=== PATIENT | female | born 1950 | race Caucasian/White ===

== ENCOUNTER 2024-09-06 05:36 | Emergency (ER) | payer MEDICARE, MEDICAID ==
[~2024-09-06] VITALS: Ht 163.8 cm; Wt 88.0 kg
[~2024-09-06 05:36] MED LIST: APIX5TAB3 PO; ASHW300C2; ATOR20TA66 PO; CHOL1CAP16; DAPA10TA PO; IODI30TI; MAGN400C PO; METO-395 PO; SACU1TAB PO; SOYB50CA; SPIR25TA PO
[2024-09-06] MEDS ORDERED: furosemide 10 MG/1 ML 10ml inj IV ONE (06:25)
[2024-09-06] MEDS: furosemide 40mg/4ml inj IV ONE (07:22)
[2024-09-06] MEDS: metoprolol tartrate 1mg/ml inj IV ONE (07:23)
[2024-09-06 08:15] LABS: BASOPHILS # (AUTO) 0.1 X10'3 (0-0.2); BASOPHILS % (AUTO) 0.8 % (0-1); EOSINOPHILS # (AUTO) 0.1 X10'3 (0-0.9); EOSINOPHILS % (AUTO) 1.2 % (0-6); HEMATOCRIT 44.6 % (35.0-45.0); HEMOGLOBIN 14.6 g/dl (12.0-16.0); LYMPHOCYTES # (AUTO) 1.3 X10'3 (1.1-4.8); LYMPHOCYTES % (AUTO) 16.7 % (21-51); MEAN CORPUSCULAR HEMOGLOBIN 29.8 PG (27.0-31.0); MEAN CORPUSCULAR HGB CONC 32.7 g/dL (33.0-36.5); MEAN CORPUSCULAR VOLUME 91.1 FL (78-98); MEAN PLATELET VOLUME 9.2 FL (7.4-10.4); MONOCYTES # (AUTO) 0.5 X10'3 (0-0.9); NEUTROPHILS # (AUTO) 5.9 X10'3 (1.8-7.7); NEUTROPHILS % (AUTO) 75.3 % (42-75); PLATELET COUNT 286 X10'3 (140-440); RED BLOOD COUNT 4.89 X10'6 (4.20-5.60); RED CELL DISTRIBUTION WIDTH 15.7 % (11.5-14.5); WHITE BLOOD COUNT 7.8 X10'3 (4.5-11.0)
[2024-09-06 08:29] LABS: ALANINE AMINOTRANSFERASE 169 U/L (12-78); ALBUMIN 3.5 G/DL (3.4-5.0); ALKALINE PHOSPHATASE 98 IU/L (46-116); ANION GAP 10 (8-16); ASPARTATE AMINO TRANSFERASE 108 U/L (10-37); BILIRUBIN,TOTAL 0.6 MG/DL (0.1-1.0); BLOOD UREA NITROGEN 29 MG/DL (7-18); BUN/CREATININE RATIO 25.9 (10.0-20.0); CALCIUM 9.7 MG/DL (8.5-10.1); CHLORIDE 101 MMOL/L (99-107); CREATININE 1.12 MG/DL (0.40-0.90); GLUCOSE 136 MG/DL (70-104); POTASSIUM 4.4 MMOL/L (3.5-5.1); SODIUM 135 MMOL/L (135-145); TOTAL CARBON DIOXIDE 24.2 MMOL/L (24-32); TOTAL PROTEIN 7.1 G/DL (6.4-8.2); eCRCL 38 ML/MIN; eGFR 47 ML/MIN
[2024-09-06 08:37] LABS: PRO BRAIN NATRIURETIC PEPTIDE 8350 PG/ML (0-450)
[2024-09-06 09:25] VITALS: BP 126/90; PULSE 89; RESP 16; TEMP 97.5; O2SAT 99
== END 2024-09-06 09:28 | disposition home or self-care (01) ==
LOC: ER 05:37
DX: I48.91 Unspecified atrial fibrillation (principal); I50.23 Acute on chronic systolic (congestive) heart failure; Z88.5 Allergy status to narcotic agent; Z79.899 Other long term (current) drug therapy; Z60.2 Problems related to living alone
CPT/HCPCS: 36415; 71045; 80053; 83880; 84484; 85025; 93005; 96374; 96375; 99285; J1940; J3490

== ENCOUNTER 2024-09-14 15:31 | Emergency (ER) | payer MEDICARE, MEDICAID ==
[~2024-09-14] VITALS: Ht 162.6 cm; Wt 88.0 kg
[~2024-09-14 15:31] MED LIST changes: -IODI30TI; -SOYB50CA
[2024-09-14 16:49] VITALS: BP 131/99; PULSE 99; RESP 16; TEMP 98.6; O2SAT 98
== END 2024-09-14 18:07 | disposition home or self-care (01) ==
LOC: ER 15:32
DX: S09.90XA Unspecified injury of head, initial encounter (principal); I48.91 Unspecified atrial fibrillation; I50.9 Heart failure, unspecified; Z88.5 Allergy status to narcotic agent; W19.XXXA Unspecified fall, initial encounter; Y93.01 Activity, walking, marching and hiking; Y92.89 Other specified places as the place of occurrence of the external cause; Y99.8 Other external cause status
CPT/HCPCS: 70450; 72125; 99284

== ENCOUNTER 2024-09-24 11:11 | Inpatient (IN) | payer MEDICARE, MEDICAID ==
[~2024-09-24] VITALS: Ht 162.6 cm; Wt 81.8 kg
[2024-09-24 12:25] LABS: BASOPHILS % (AUTO) 0.7 % (0-1); EOSINOPHILS # (AUTO) 0.1 X10'3 (0-0.9); HEMATOCRIT 46.9 % (35.0-45.0); HEMOGLOBIN 14.7 g/dl (12.0-16.0); LYMPHOCYTES # (AUTO) 1.3 X10'3 (1.1-4.8); LYMPHOCYTES % (AUTO) 20.1 % (21-51); MEAN CORPUSCULAR HEMOGLOBIN 29.8 PG (27.0-31.0); MEAN CORPUSCULAR HGB CONC 31.4 g/dL (33.0-36.5); MEAN CORPUSCULAR VOLUME 94.8 FL (78-98); MEAN PLATELET VOLUME 9.6 FL (7.4-10.4); MONOCYTES # (AUTO) 0.4 X10'3 (0-0.9); MONOCYTES % (AUTO) 5.7 % (2-12); NEUTROPHILS # (AUTO) 4.7 X10'3 (1.8-7.7); NEUTROPHILS % (AUTO) 72.5 % (42-75); PLATELET COUNT 233 X10'3 (140-440); RED BLOOD COUNT 4.95 X10'6 (4.20-5.60); RED CELL DISTRIBUTION WIDTH 17.1 % (11.5-14.5); WHITE BLOOD COUNT 6.4 X10'3 (4.5-11.0)
[2024-09-24 12:41] LABS: ALANINE AMINOTRANSFERASE 63 U/L (12-78); ALBUMIN 3.1 G/DL (3.4-5.0); ALBUMIN/GLOBULIN RATIO 0.9 (1.1-1.5); ALKALINE PHOSPHATASE 97 IU/L (46-116); ANION GAP 8 (8-16); ASPARTATE AMINO TRANSFERASE 49 U/L (10-37); BILIRUBIN,TOTAL 0.8 MG/DL (0.1-1.0); BLOOD UREA NITROGEN 32 MG/DL (7-18); BUN/CREATININE RATIO 29.4 (10.0-20.0); CALCIUM 9.1 MG/DL (8.5-10.1); CHLORIDE 103 MMOL/L (99-107); CREATININE 1.09 MG/DL (0.40-0.90); GLUCOSE 132 MG/DL (70-104); POTASSIUM 4.5 MMOL/L (3.5-5.1); SODIUM 136 MMOL/L (135-145); TOTAL PROTEIN 6.6 G/DL (6.4-8.2); eCRCL 39 ML/MIN; eGFR 49 ML/MIN
[2024-09-24 12:49] LABS: PRO BRAIN NATRIURETIC PEPTIDE 12521 PG/ML (0-450)
[2024-09-24] MEDS ORDERED: furosemide 10 MG/1 ML 10ml inj IV ONE (14:50)
[2024-09-24] MEDS: metoprolol tartrate 1mg/ml inj IV ONE (15:16)
[2024-09-24] MEDS: furosemide 40mg/4ml inj IV ONE (15:16)
[2024-09-24] MEDS: metoprolol tartrate 25mg tablet PO ONE (15:17)
[2024-09-24] MEDS ORDERED: potassium Cl 20 mEq SR tablet PO PRN ×2 (15:25)
[2024-09-24] MEDS ORDERED: morphine 2 MG/ML inj. syringe IV PRN (15:25)
[2024-09-24] MEDS ORDERED: acetaminophen 325mg tablet PO PRN ×2 (15:25)
[2024-09-24] MEDS ORDERED: potassium Cl 40MEQ/1/2NS 520ml 520 ML IV PRN (15:25)
[2024-09-24] MEDS ORDERED: magnesium Cl slow-release 64mg tablet PO PRN (15:25)
[2024-09-24] MEDS ORDERED: ondansetron/PF 4mg/2ml inj IV PRN (15:25)
[2024-09-24] MEDS ORDERED: magnesium sulf-water 2g/50mL 50 ML IV PRN (15:25)
[2024-09-24] MEDS ORDERED: HYDROcodone/acetaminophen 5mg/325mg tablet PO PRN (15:25)
[2024-09-24] MEDS ORDERED: magnesium sulf-water 4G/100mL 100 ML IV PRN (15:25)
[2024-09-24 16:44] VITALS: BP 150/77; PULSE 93; RESP 20; O2SAT 96
[2024-09-24] MEDS: diltiazem-NS 100mg/100ml 100 ML IV SCH (16:50)
[2024-09-24] MEDS: heparin, porcine 5000 units/ml vial SQ SCH (22:21)
[2024-09-24] MEDS: furosemide 40mg/4ml inj IV SCH (22:22)
[2024-09-25 01:57] LABS: BASOPHILS # (AUTO) 0.1 X10'3 (0-0.2); BASOPHILS % (AUTO) 0.7 % (0-1); EOSINOPHILS # (AUTO) 0.2 X10'3 (0-0.9); EOSINOPHILS % (AUTO) 2.7 % (0-6); HEMATOCRIT 44.7 % (35.0-45.0); HEMOGLOBIN 14.6 g/dl (12.0-16.0); LYMPHOCYTES # (AUTO) 1.9 X10'3 (1.1-4.8); LYMPHOCYTES % (AUTO) 25.7 % (21-51); MEAN CORPUSCULAR HGB CONC 32.8 g/dL (33.0-36.5); MEAN CORPUSCULAR VOLUME 91.5 FL (78-98); MEAN PLATELET VOLUME 9.5 FL (7.4-10.4); MONOCYTES # (AUTO) 0.4 X10'3 (0-0.9); MONOCYTES % (AUTO) 5.6 % (2-12); NEUTROPHILS # (AUTO) 4.8 X10'3 (1.8-7.7); NEUTROPHILS % (AUTO) 65.3 % (42-75); PLATELET COUNT 221 X10'3 (140-440); RED BLOOD COUNT 4.88 X10'6 (4.20-5.60); RED CELL DISTRIBUTION WIDTH 16.3 % (11.5-14.5); WHITE BLOOD COUNT 7.3 X10'3 (4.5-11.0)
[2024-09-25 02:08] LABS: ALBUMIN 3.2 G/DL (3.4-5.0); ANION GAP 5 (8-16); BLOOD UREA NITROGEN 34 MG/DL (7-18); BUN/CREATININE RATIO 25.6 (10.0-20.0); CALCIUM 8.9 MG/DL (8.5-10.1); CHLORIDE 104 MMOL/L (99-107); CREATININE 1.33 MG/DL (0.40-0.90); GLUCOSE 110 MG/DL (70-104); POTASSIUM 3.7 MMOL/L (3.5-5.1); SODIUM 140 MMOL/L (135-145); TOTAL CARBON DIOXIDE 31.2 MMOL/L (24-32); eCRCL 32 ML/MIN; eGFR 39 ML/MIN
[2024-09-25] MEDS ORDERED: sacubitril/valsartan 24mg-26mg tablet PO SCH (08:00)
[2024-09-25] MEDS: DAPAGLIFLOZIN 10MG TABLET PO SCH (08:51)
[2024-09-25] MEDS: apixaban 5mg tablet PO SCH (08:51)
[2024-09-25] MEDS: metoprolol succinate 25mg (24-HOUR) SR. Tablet PO SCH (08:52)
[2024-09-25] MEDS: spironolactone 25 MG tablet PO SCH (08:53)
[2024-09-25] MEDS: sacubitril/valsartan 24mg-26mg tablet PO SCH (08:54)
[2024-09-25 12:00] VITALS: RESP 17; O2SAT 97
[2024-09-25 15:00] VITALS: BP 128/85; PULSE 92; RESP 17; TEMP 97.1; O2SAT 97
[2024-09-25 18:00] VITALS: BP 135/82; PULSE 99; RESP 18; TEMP 97; O2SAT 96
[2024-09-25 20:00] VITALS: RESP 18; O2SAT 96
[2024-09-25 22:00] VITALS: BP 133/85; PULSE 96; RESP 11; TEMP 97; O2SAT 97
[2024-09-26 06:00] VITALS: BP 133/84; PULSE 72; RESP 19; O2SAT 97
[2024-09-26] MEDS: furosemide 40mg/4ml inj IV SCH (07:49)
[2024-09-26 08:00] VITALS: RESP 19; O2SAT 97
[2024-09-26 08:22] LABS: BASOPHILS % (AUTO) 0.7 % (0-1); EOSINOPHILS # (AUTO) 0.3 X10'3 (0-0.9); EOSINOPHILS % (AUTO) 4.8 % (0-6); HEMATOCRIT 45.9 % (35.0-45.0); HEMOGLOBIN 15.1 g/dl (12.0-16.0); LYMPHOCYTES # (AUTO) 1.6 X10'3 (1.1-4.8); MEAN CORPUSCULAR HEMOGLOBIN 30.2 PG (27.0-31.0); MEAN CORPUSCULAR HGB CONC 32.9 g/dL (33.0-36.5); MEAN CORPUSCULAR VOLUME 91.8 FL (78-98); MEAN PLATELET VOLUME 9.6 FL (7.4-10.4); MONOCYTES # (AUTO) 0.5 X10'3 (0-0.9); MONOCYTES % (AUTO) 8.8 % (2-12); NEUTROPHILS # (AUTO) 3.1 X10'3 (1.8-7.7); NEUTROPHILS % (AUTO) 56.7 % (42-75); PLATELET COUNT 191 X10'3 (140-440); RED CELL DISTRIBUTION WIDTH 16.4 % (11.5-14.5); WHITE BLOOD COUNT 5.4 X10'3 (4.5-11.0)
[2024-09-26 08:40] LABS: ANION GAP 9 (8-16); BLOOD UREA NITROGEN 33 MG/DL (7-18); BUN/CREATININE RATIO 28.9 (10.0-20.0); CALCIUM 8.8 MG/DL (8.5-10.1); CHLORIDE 106 MMOL/L (99-107); CREATININE 1.14 MG/DL (0.40-0.90); GLUCOSE 99 MG/DL (70-104); POTASSIUM 3.4 MMOL/L (3.5-5.1); SODIUM 143 MMOL/L (135-145); TOTAL CARBON DIOXIDE 28.2 MMOL/L (24-32); eCRCL 37 ML/MIN; eGFR 46 ML/MIN
[2024-09-26 08:41] LABS: ALBUMIN 2.8 G/DL (3.4-5.0)
[2024-09-26] MEDS ORDERED: FURO-150 PO (10:41)
[2024-09-26 11:00] VITALS: BP 140/83; PULSE 88; RESP 16; TEMP 97.2; O2SAT 97
== END 2024-09-26 13:00 | disposition home or self-care (01) | DRG 291 ==
LOC: ER 11:11 → ED HOLD 15:31 → PCU 3S 09-25 11:14
PROVIDERS: ADMIT Internal Medicine; ATTEND Internal Medicine
DX: I13.0 Hypertensive heart and chronic kidney disease with heart failure and stage 1 through stage 4 chronic kidney disease, or unspecified chronic kidney disease (principal); I50.33 Acute on chronic diastolic (congestive) heart failure; I48.20 Chronic atrial fibrillation, unspecified; N18.30 Chronic kidney disease, stage 3 unspecified; I34.0 Nonrheumatic mitral (valve) insufficiency; Z86.73 Personal history of transient ischemic attack (TIA), and cerebral infarction without residual deficits; Z79.01 Long term (current) use of anticoagulants
CPT/HCPCS: 36415; 71045; 80048; 80053; 83880; 84484; 85025; 87081; 93005; 96365; 96375; 99285; G0378; J1644; J1940; J3490